=== PATIENT | male | born 1975 | race African-American/Black ===

== ENCOUNTER → 2019-08-12 07:30 | Outpatient (CLI) | payer OTHER, SELFPAY ==
--- NOTE | 2019-08-12 | DI.MRI.S_ITS ---
PROCEDURE: MR LUMBAR SPINE WO CON INDICATIONS: Low back pain TECHNIQUE: Noncontrast sagittal T1 spin echo and T2 fast echo, sagittal STIR, axial T1 and T2 fast spin echo through the lumbar spine. In cases with scoliosis, additional coronal T2 fast spin echo may be performed. COMPARISON: None. FINDINGS: Image quality: Good. Patient motion. Diagnostic image quality. Alignment and Curvature: Mild degenerative retrolisthesis of L5 on S1 measuring 4 mm. Other vertebral bodies normally aligned. Bone Marrow: Marrow is of normal overall signal. No acute vertebral body compression fractures. Spinal Cord: Conus medullaris terminates at the L1 level. Visualized cord demonstrates normal signal and size. Paraspinous Soft Tissues: No paravertebral masses. T12-L1: Normal appearance. L1-L2: Normal appearance. L2-L3: Normal appearance. L3-L4: Normal appearance. L4-L5: Normal appearance. L5-S1: Severe chronic disc height loss. Mild retrolisthesis of L5 on S1. No pars defects. Mild posterior disc bulge abuts the S1 nerve roots in the lateral recess Mild facet hypertrophy. No canal stenosis. Moderate right foraminal narrowing with mild flattening deformity on the exiting right L5 nerve root. IMPRESSION: 1. L5-S1 there is severe degenerative disc height loss. There is mild degenerative retrolisthesis of L5 on S1. There is mild posterior disc bulge which abuts the bilateral S1 nerve roots in the lateral recesses. There is mild facet hypertrophy. There is moderate right foraminal narrowing. 2. No significant findings at levels. Dictated by: Joon Estevez M.D. on 08/12/2019 at 9:00 Approved by: Joon Estevez M.D. on 08/12/2019 at 9:15
== END ==
PROVIDERS: Referring Provider Student in an Organized Health Care Education/Training Program; Visit Provider Student in an Organized Health Care Education/Training Program
DX: M51.27 Other intervertebral disc displacement, lumbosacral region (principal); M43.17 Spondylolisthesis, lumbosacral region
CPT/HCPCS: 72148